=== PATIENT | female | born 1975 | race African-American/Black ===

== ENCOUNTER 2024-05-21 10:04 | Outpatient (CLI) | payer OTHER | END 2024-05-21 10:05 | disposition home or self-care (01) | LOC: CSHMAMMO 10:04 | PROVIDERS: ATTEND Nurse Practitioner Family | DX: Z12.31 Encounter for screening mammogram for malignant neoplasm of breast (principal); N64.89 Other specified disorders of breast | CPT/HCPCS: 77063; 77067 ==

== ENCOUNTER 2024-06-04 08:40 | Outpatient (CLI) | payer OTHER | END 2024-06-04 08:41 | disposition home or self-care (01) | LOC: CSHMAMMO 08:40 | PROVIDERS: ATTEND Nurse Practitioner Family | DX: N64.89 Other specified disorders of breast (principal); N63.12 Unspecified lump in the right breast, upper inner quadrant | CPT/HCPCS: G0279 ==

== ENCOUNTER → 2024-06-11 | Day surgery (SDC) | payer OTHER | LOC: CSHULT 12:08 | PROVIDERS: ATTEND Nurse Practitioner Family | PROC: 0HB5XZX Excision of Chest Skin, External Approach, Diagnostic (ICD-10-PCS; principal; 2024-06-11) | DX: R92.1 Mammographic calcification found on diagnostic imaging of breast (principal); D24.1 Benign neoplasm of right breast | CPT/HCPCS: 19083; 88305; 88341; 88342 ==